=== PATIENT | female | born 1940 | race Caucasian/White ===

== ENCOUNTER 2017-07-11 15:00 | Emergency (ER) | payer MEDICARE ==
[~2017-07-11] VITALS: Ht 152.4 cm; Wt 97.1 kg
--- NOTE | 2017-07-11 15:00 | NUR ---
Pt was placed in bed 3 by ACLS with AFib with RVR, pt denies chest pain, n/v or fever. Pt went to [facility] for cough, congestion, fever since May. Pt has audible wheezes to bilateral lungs. Pt is able to communicate in full sentences. Pt's heart was elevated on arrival. No other injuries/complaints per pt or noted.
[2017-07-11 15:05] VITALS: BP_SYST 124
--- NOTE | 2017-07-11 15:08 | NUR ---
ER at bedside examining patient.
[2017-07-11] MEDS ORDERED: NACL 0.9% 1,000 ML IV ONE (15:15)
[2017-07-11] MEDS ORDERED: DILTIAZEM HCL 25 MG/5 ML VIAL IVP ONE ×2 (15:45→18:00)
[2017-07-11 15:47] LABS: EOSINOPHILS # (AUTO) 0.1 K/uL (0.0-0.4); HEMOGLOBIN 15.2 g/dL (12.0-16.0); LYMPHOCYTES # (AUTO) 1.4 K/uL (1.0-5.5); LYMPHOCYTES % (AUTO) 13.3 % (20.5-51.5)
--- NOTE | 2017-07-11 16:08 | NUR ---
Medication was given to pt, tolerated it well. No noted adverse reaction, will continue to monitor.
[2017-07-11 16:27] LABS: BASOPHILS # (AUTO) 0.1 K/uL (0.0-0.2); EOSINOPHILS % (AUTO) 0.8 % (0.0-4.0); MEAN CORPUSCULAR HEMOGLOBIN 29 pg (27-31); MEAN CORPUSCULAR HGB CONC 32 % (32-36); MEAN CORPUSCULAR VOLUME 89 fL (79.0-98.0); MONOCYTES # (AUTO) 0.8 K/uL (0.0-1.0); MONOCYTES % (AUTO) 8.3 % (1.7-9.3); NEUTROPHILS # (AUTO) 7.8 K/uL (1.8-7.7); NEUTROPHILS % (AUTO) 76.6 % (40.0-70.0); PLATELET COUNT (AUTO) 305 K/uL (130-430); RED BLOOD CELL COUNT(AUTO) 5.29 MIL/uL (4.2-6.2); RED CELL DISTRIBUTION WIDTH 12.9 % (9.0-15.0); WHITE BLOOD COUNT (AUTO) 10.2 K/uL (4.8-10.8)
--- NOTE | 2017-07-11 16:30 | NUR ---
Pt is resting in bed comfortably with no noted distress or discomfort.
[2017-07-11 17:08] LABS: ANION GAP 12 (5-15); CALCIUM 9.9 mg/dL (8.4-11.0); CHLORIDE 96 mmol/L (98-107); CREATININE 1.02 mg/dL (0.55-1.30); GLUCOSE 118 mg/dL (70-99); POTASSIUM 3.6 mmol/L (3.5-5.1); SODIUM SERUM 132 mmol/L (136-145); UREA NITROGEN, BLOOD 21 mg/dL (8-21)
[2017-07-11 17:20] LABS: ALANINE AMINOTRANSFERASE 52 U/L (12-78); ALBUMIN 2.9 g/dL (3.4-4.8); ASPARTATE AMINOTRANSFERASE 51 U/L (10-37); TOTAL BILIRUBIN 0.3 mg/dL (0.0-1.0)
--- NOTE | 2017-07-11 17:28 | NUR ---
Pt ambulated to restroom with no noted difficulty. No complaints of pain at this time
[2017-07-11 17:31] LABS: PROTHROMBIN TIME 10.1 SECS (9.5-12.5)
[2017-07-11 17:57] LABS: BILIRUBIN,URINE NEGATIVE (NEGATIVE); BLOOD, URINE 2+ (NEGATIVE); CLARITY/URINE SL HAZY (CLEAR); COLOR,URINE YELLOW (YELLOW); GLUCOSE,URINE NEGATIVE (NEGATIVE); KETONES,URINE TRACE (NEGATIVE); LEUKOCYTE ESTERASE ,URINE NEGATIVE (NEGATIVE); NITRITE, URINE NEGATIVE (NEGATIVE); PROTEIN URINE NEGATIVE (NEGATIVE); UROBILINOGEN,URINE 0.2 (0.2-1.0)
[2017-07-11 18:10] LABS: BACTERIA,URINE FEW /HPF (None Seen); WBC,URINE 0-3 /HPF (0-3)
[2017-07-11 18:11] LABS: MUCUS,URINE 1+ /LPF (None Seen)
--- NOTE | 2017-07-11 19:15 | NUR ---
Assumed care of patient. Patient calmly resting in ER bed, no signs of distress noted. Patient HR at 110, MD notified.
[2017-07-11] MEDS ORDERED: DILTIAZEM HCL 120 MG CAP.SR.24H PO ONE (19:30)
--- NOTE | 2017-07-11 19:30 | NUR ---
ER Dr. Maki at bedside examining patient.
--- NOTE | 2017-07-11 21:15 | NUR ---
Patient calmly resting in ER bed, vital signs within therapeutic range. Will continue to monitor.
--- NOTE | 2017-07-11 23:15 | NUR ---
Patient calmly resting in ER bed, vital signs within therapeutic range. Will continue to monitor.
--- NOTE | 2017-07-12 01:15 | NUR ---
Patient calmly resting in ER bed, no signs of distress noted. Vital signs within therapeutic range.
[2017-07-12 01:55] VITALS: BP_SYST 119
--- NOTE | 2017-07-12 01:55 | NUR ---
Patient to be transferred to [facility]. Is being transferred due to higher level of care. Receiving facility has accepting physician and available space. ER physician has signed transfer form. Patient or responsible green party has agreed to transfer and signed form. Patient belongings inventoried and will be sent with patient. Copy of nursing notes, lab reports, EKG, Physicians Orders and X-rays to be sent with patient. Report called to WAYLON Valadez at receiving facility. Receiving physician is Dr. Hernandez. Ambulance service has been called for transfer. Paramedics are at bedside, ETA to [facility] is 30-40 minutes.
== END 2017-07-12 01:55 | disposition short-term general hospital (02) ==
LOC: SED 15:00
DX: I48.91 Unspecified atrial fibrillation (principal); J06.9 Acute upper respiratory infection, unspecified
CPT/HCPCS: 36415; 71045; 80053; 81000; 83605; 84484; 85025; 85610; 85730; 86710; 87040; 87086; 93005; 96361; 96374; 96376; 99285; J3490; J7030